=== PATIENT | female | born 1975 | race Caucasian/White ===

== ENCOUNTER 2019-09-25 23:56 | Emergency (ER) | payer OTHER ==
[~2019-09-25] VITALS: Ht 157.5 cm; Wt 102.0 kg
[2019-09-26] MEDS ORDERED: IV NORMAL SALINE 1,000ML 1,000 ML IV ONE (00:30)
--- NOTE | 2019-09-26 00:42 | PHYS DOC ---
General Adult EDM: Chief Complaint: HYPERTENSION HPI: HPI: 43-year-old female presents with hypertension. The patient felt like she was having a localized allergic reaction on her top lip yesterday when she went to bed. It has been bothering her on and off during the day today. She has taken Benadryl and it has kept down the swelling. The patient also just generally felt more off today. She decided to take her blood pressure before bed and it was in the upper 170s or higher. She became very anxious and concerned about that and called the nurse line. The nursing advised she stay home and call her primary care physician. She decided to come the hospital anyway. On arrival he r blood pressure is 207/131. Her heart rate is 120. Review of Systems: Review of Systems: Constitutional: Denies fever or chills Eyes: Denies change in visual acuity HENT: Denies nasal congestion or sore throat Respiratory: Denies cough or shortness of breath Cardiovascular: Denies chest pain or edema GI: Denies abdominal pain, nausea, vomiting, bloody stools or diarrhea : Denies dysuria Musculoskeletal: Denies back pain or joint pain Integument: Denies rash Neurologic: Denies headache, focal weakness or sensory changes Endocrine: Denies polyuria or polydipsia Lymphatic: Denies swollen glands Psychiatric: anxiety Heart Score: Risk Factors: Risk Factors: DM, Current or recent (<one month) smoker, HTN, HLP, family history of CAD, obesity. Risk Scores: Score 0 - 3: 2.5% MACE over next 6 weeks - Discharge Home Score 4 - 6: 20.3% MACE over next 6 weeks - Admit for Clinical Observation Score 7 - 10: 72.7% MACE over next 6 weeks - Early Invasive Strategies Current Medications: Current Meds: Current Medications Medications (Trade) Dose Ordered Sig/[place] Start Time Stop Time Status Last Admin Dose Admin Clonidine HCl (Catapres) 0.2 mg 1X ONCE 09/26/19 00:30 09/26/19 00:31 UNV Lorazepam (Ativan Inj) 2 mg 1X ONCE 09/26/19 00:30 09/26/19 00:31 UNV Sodium Chloride 1,000 ml @ 1,000 mls/hr 1X ONCE 09/26/19 00:30 09/26/19 01:29 UNV Physical Exam: PE: Constitutional: Well developed, morbidly obese, well nourished, no acute distress, non-toxic appearance. [] HENT: Normocephalic, atraumatic, bilateral external ears normal, oropharynx moist, no oral exudates, nose normal. [] Eyes: PERRLA, EOMI, conjunctiva normal, no discharge. [] Neck: Normal range of motion, no tenderness, supple, no stridor. [] Cardiovascular: Heart rate 126, regular rhythm, no murmur [] Lungs & Thorax: Bilateral breath sounds clear to auscultation [] Abdomen: Bowel sounds normal, soft, no tenderness, no masses, no pulsatile masses. [] Skin: Warm, dry, no erythema, no rash. [] Back: No tenderness, no CVA tenderness. [] Extremities: No tenderness, no cyanosis, no clubbing, ROM intact, no edema. [] Neurologic: Alert and oriented X 3, normal motor function, normal sensory funct ion, no focal deficits noted. [] Psychologic: Affect normal, judgement normal, mood anxious. [] EKG: EKG: [] Radiology/Procedures: Radiology/Procedures: [] Course & Med Decision Making: Course & Med Decision Making Pertinent Labs and Imaging studies reviewed. (See chart for details) The patient's labs are unremarkable except for anemia with a hemoglobin of 10.6 and a mildly low potassium. After just some Ativan for her anxiety, the patient's blood pressure improved to 157/107. Her heart rate is still 119. She tells me that she is always had a rapid heartbeat. It is sinus. We have given her a liter normal saline. Her urinalysis is significant for blood but she is on her menstrual cycle. It is negative for infection. I have stressed to the patient that she should follow-up with her primary care physician and discuss the need for blood pressure medicine. She should also have a more complete evaluation of her cardiovascular system. She is stable for discharge at this time. [] Dragon Disclaimer: Jeovany Disclaimer: This electronic medical record was generated, in whole or in part, using a voice recognition dictation system. Departure Departure: Impression: Primary Impression: Hypertension Qualified Codes: I10 - Essential (primary) hypertension Disposition: HOME/RESIDENCE PRIOR TO ADM Condition: STABLE Referrals: PCP,NO (PCP) Patient Instructions: Hypertension, Hbje-te-Irct Justification of Admission: Justification of Admission: Justification of Admission Dx: N/A TOSIN PRIETO DO Sep 26, 2019 00:42
[2019-09-26] MEDS ORDERED: cloNIDine HCL 0.1 MG TABLET PO ONE (00:45)
[2019-09-26 00:54] LABS: BASO # 0.1 x10^3/uL (0.0-0.2); BASO % 1 % (0-3); EOS # 0.1 x10^3/uL (0.0-0.7); EOS % 2 % (0-3); HEMATOCRIT 33.5 % (36.0-47.0); HEMOGLOBIN 10.6 g/dL (12.0-15.5); LYMPH # 3.2 x10^3/uL (1.0-4.8); LYMPH % 35 % (24-48); MEAN CORPUSCULAR HEMOGLOBIN 22 pg (25-35); MEAN CORPUSCULAR HGB CONC 32 g/dL (31-37); MEAN CORPUSCULAR VOLUME 69 fL (79-100); MONO # 0.6 x10^3/uL (0.0-1.1); MONO % 7 % (0-9); NEUT # 5.2 x10^3uL (1.8-7.7); NEUT % 56 % (31-73); PLATELET COUNT 287 x10^3/uL (140-400); RED BLOOD COUNT 4.88 x10^6/uL (3.50-5.40); RED CELL DISTRIBUTION WIDTH 16.4 % (11.5-14.5); WHITE BLOOD COUNT 9.2 x10^3/uL (4.0-11.0)
[2019-09-26 00:58] LABS: CALCIUM 10.1 mg/dL (8.5-10.1); CREATININE 0.8 mg/dL (0.6-1.0); GFR 78.7; POTASSIUM 3.3 mmol/L (3.5-5.1)
[2019-09-26 01:00] LABS: BARBITURATES NEG (NEG); BENZODIAZEPINES NEG (NEG); CANNABINOIDS NEG (NEG); COCAINE NEG (NEG); METHADONE NEG (NEG); OPIATES NEG (NEG); PHENCYCLIDINE NEG (NEG)
[2019-09-26 01:03] LABS: BACTERIA,URINE 0 /HPF (0-FEW); BILIRUBIN,URINE NEG (NEG); CLARITY,URINE CLEAR; COLOR,URINE STRAW; GLUCOSE,URINE NEG (NEG); NITRITE,URINE NEG (NEG); SQUAMOUS EPITHELIAL CELL,UR FEW /LPF; UROBILINOGEN,URINE 0.2 mg/dL (0.2 mg/dL); WBC,URINE 0 /HPF (0-4)
[2019-09-26 01:04] LABS: TOTAL BILIRUBIN 0.2 mg/dL (0.2-1.0); TOTAL PROTEIN 8.2 g/dL (6.4-8.2)
[2019-09-26 01:05] LABS: AMPHETAMINE/METHAMPHETAMINE NEG (NEG)
[2019-09-26 01:52] LABS: ANISOCYTOSIS MOD; MICROCYTOSIS MOD
[2019-09-26 01:53] LABS: HYPOCHROMIA MOD; PLT ESTIMATE ADEQUATE (ADEQUATE)
[2019-09-26 02:05] VITALS: BP 161/103
--- NOTE | 2019-09-26 02:43 | EKG ---
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
== END 2019-09-26 02:05 | disposition home or self-care (01) ==
LOC: ER 23:56
DX: I10 Essential (primary) hypertension (principal); K13.0 Diseases of lips; F41.9 Anxiety disorder, unspecified; E66.01 Morbid (severe) obesity due to excess calories; Z68.41 Body mass index [BMI] 40.0-44.9, adult
CPT/HCPCS: 36415; 80053; 80307; 81001; 84484; 85025; 93005; 96374; 99284; J2060; J7030

== ENCOUNTER 2020-04-13 17:05 | Emergency (ER) | payer OTHER ==
[~2020-04-13] VITALS: Ht 157.5 cm; Wt 94.4 kg
--- NOTE | 2020-04-13 17:39 | PHYS DOC ---
Past History Past Medical History: Anxiety, Diabetes, High Cholesterol, Hypertension (SHYANNE MCGREGOR MD) Past Medical History: CAD, CHF, Hypertension, Other (DES MALDONADO MD) Past Surgical History: Cholecystectomy, Hysterectomy (SHYANNE MCGREGOR MD) Alcohol Use: None (SHYANNE MCGREGOR MD) General Adult EDM: Chief Complaint: ANXIETY/PANIC ATTACK HPI: HPI: Patient is a 44-year-old female coming in for blood pressure reading of 170s over 110's at home. Patient states she checked her blood pressure because she felt "off" for the past couple of days. States she also had difficulty sleeping last night secondary to palpitations and has a mild headache. Denies any vision changes. Patient is tearful but denies any recent stressors or anxiety. She was seen here for similar symptoms in August and discharged after a negative work up, she had followed up with her primary care and was started on lisinopril which was increased to 30 mg daily about 1 month ago. Denies any fevers, nausea, vomiting, vision changes, dysuria. Patient states she has been drinking increased water and has had increased urination as a result. Says she normally has an elevated heart rate but without the sensation of her heart beating harder than normal. States her systolic blood pressure is usually in the 150s (SHYANNE MCGREGOR MD) Review of Systems: Review of Systems: All other systems within normal limits except for as noted in the HPI (SHYANNE MCGREGOR MD) Allergies: Allergies: Allergies Coded Allergies Type Severity Reaction Last Updated Verified Penicillins Allergy Intermediate Swelling 09/26/19 No (SHYANNE MCGREGOR MD) Physical Exam: PE: Constitutional: Well developed, well nourished, no acute distress, non-toxic appearance, tearful. [] HENT: Normocephalic, atraumatic, bilateral external ears normal, nose normal. [] Eyes: PERRLA, conjunctiva normal, no discharge. [] Neck: No rigidity, supple, no stridor. [] Cardiovascular: Tachycardic, regular rhythm, symmetric pulses, brisk cap refill [] Lungs & Thorax: Non labored symmetric respirations, no tachypnea or respiratory distress. Lungs clear to auscultation [] Abdomen: Soft, nondistended, nontender to palpation. Skin: Warm, dry, no erythema, no rash, no pallor. [] Extremities: No deformities, range of motion grossly intact, no lower extremity edema [] Neurologic: Alert and oriented X 3, no focal deficits noted. [] Psychologic: Affect normal, judgement normal, mood normal. [] (SHYANNE MCGREGOR MD) Current Patient Data: Vital Signs: Vital Signs Date Time Temp Pulse Resp B/P (MAP) Pulse Ox O2 Delivery O2 Flow Rate FiO2 04/13/20 17:05 98.2 108 24 188/131 (150) 99 Room Air (SHYANNE MCGREGOR MD) EKG: EKG: Sinus tachycardia, heart rate 103 bpm, left axis deviation, no ST elevation or depression, no ectopy, normal intervals [] (SHYANNE MCGREGOR MD) EKG: My interpretation of second EKG shows a sinus tachycardia 105 bpm. Does have leftward axis. No findings of acute STEMI of contralateral changes there are some lead changes which have been attributed to lead placement from prior EKG on file. Overall morphology has not changed. (DES MALDONADO MD) Radiology/Procedures: Radiology/Procedures: [] (SHYANNE MCGREGOR MD) Radiology/Procedures: [place] [address] IMAGING REPORT Signed PATIENT: ZULMA BURNHAM ACCOUNT: [id number] : 1975 LOCATION: ER AGE: 44 SEX: F EXAM STATUS: REG ER ORD. PHYSICIAN: DES MALDONADO MD REASON: cp, OMNI 350, 100ml PROCEDURE: CT ANGIOGRAPHY CHEST Exam: CT of chest with contrast INDICATION: Chest pain TECHNIQUE: Sequential axial images through the chest obtained following the administration 100 mL of Omni 350 IV contrast. Sagittal and coronal reformatted images were reconstructed from the axial data and reviewed. 3-D reformatted images were reconstructed from the axial data and reviewed. Comparisons: Chest x-ray same day FINDINGS: The visualized portions of the thyroid are unremarkable. No enlarged mediastinal lymph nodes are identified. Heart size is normal. No pericardial effusion. Thoracic aorta has a normal course and caliber. Pulmonary artery is not enlarged. No pulmonary embolus identified within the main, lobar or segmental pulmonary arteries. Airways are patent. There is mosaic attenuation lung parenchyma likely related to air trapping. No consolidation or pneumothorax. No pleural Effusion or thickening. Diffuse hepatic steatosis. No suspicious osseous lesions or acute fractures. IMPRESSION: 1. No pulmonary embolus identified within the main, lobar or segmental pulmonary arteries. 2. Diffuse hepatic steatosis. Exposure: One or more of the following in the visualized dose reduction techniques were utilized for this examination: 1. Automated exposure control 2. Adjustment of the MA and/or KV according to patient size 3. Use of iterative of reconstructive technique Electronically signed by: Festus Maynard MD (04/13/2020 10:21 PM) [facility] DICTATED AND SIGNED BY: FESTUS MAYNARD MD DATE: 04/13/202217 CC: DES MALDONADO MD; LEIDA GUILLORY APRN ~MTH0 0 (DES MALDONADO MD) Heart Score: Risk Factors: Risk Factors: DM, Current or recent (<one month) smoker, HTN, HLP, family history of CAD, obesity. Risk Scores: Score 0 - 3: 2.5% MACE over next 6 weeks - Discharge Home Score 4 - 6: 20.3% MACE over next 6 weeks - Admit for Clinical Observation Score 7 - 10: 72.7% MACE over next 6 weeks - Early Invasive Strategies (SHYANNE MCGREGOR MD) HEART Score for Chest Pain: HEART Score for Chest Pain Response (Comments) Value History Slighlty/Non-Suspicious 0 ECG Nonspecific Repolarizatio 1 Age < 45 0 Risk Factors 1 or 2 Risk Factors 1 Troponin < Normal Limit 0 Total 2 Course & Med Decision Making: Course & Med Decision Making Pertinent Labs and Imaging studies reviewed. (See chart for details) Care transitioned to Dr. Maldonado at shift change, patient pending labs [] (SHYANNE MCGREGOR MD) Course & Med Decision Making See Dr. Mcgregor chart for details. Take blood pressure meds as previous directed. Wear clonidine patch until follow-up with your primary care. Return if any concerns. Push fruit juices. Must follow-up primary care. Impression: 1. Accelerated HTN 2. Hypokalemia 3.1 3. Hx.of Anxiety 4. Pleurisy (DES MALDONADO MD) Dragon Disclaimer: Dragon Disclaimer: This electronic medical record was generated, in whole or in part, using a voice recognition dictation system. (SHYANNE MCGREGOR MD) Departure Departure: Referrals: LEIDA GUILLORY APRN (PCP) Jeovany Disclaimer This chart was dictated in whole or in part using Voice Recognition software in a busy, high-work load, and often noisy Emergency Department environment. It may contain unintended and wholly unrecognized errors or omissions. (DES MALDONADO MD) SHYANNE MCGREGOR MD Apr 13, 2020 17:39 DES MALDONADO MD Apr 13, 2020 18:03
--- NOTE | 2020-04-13 17:52 | EKG ---
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
[2020-04-13] MEDS ORDERED: LORazepam 1 MG TABLET PO ONE (18:00)
[2020-04-13 18:08] LABS: BASO % 0 % (0-3); EOS # 0.1 x10^3/uL (0.0-0.7); EOS % 1 % (0-3); HEMOGLOBIN 14.7 g/dL (12.0-15.5); LYMPH # 2.7 x10^3/uL (1.0-4.8); LYMPH % 33 % (24-48); MEAN CORPUSCULAR HEMOGLOBIN 27 pg (25-35); MEAN CORPUSCULAR HGB CONC 34 g/dL (31-37); MEAN CORPUSCULAR VOLUME 79 fL (79-100); MONO # 0.5 x10^3/uL (0.0-1.1); MONO % 6 % (0-9); NEUT # 4.8 x10^3uL (1.8-7.7); NEUT % 59 % (31-73); PLATELET COUNT 233 x10^3/uL (140-400); RED BLOOD COUNT 5.46 x10^6/uL (3.50-5.40); RED CELL DISTRIBUTION WIDTH 14.2 % (11.5-14.5); WHITE BLOOD COUNT 8.1 x10^3/uL (4.0-11.0)
[2020-04-13 18:14] LABS: AMPHETAMINE/METHAMPHETAMINE NEG (NEG); BARBITURATES NEG (NEG); BENZODIAZEPINES NEG (NEG); CANNABINOIDS NEG (NEG); COCAINE NEG (NEG); METHADONE NEG (NEG); OPIATES NEG (NEG); PHENCYCLIDINE NEG (NEG)
[2020-04-13] MEDS ORDERED: cloNIDine HCL 0.1 MG TABLET ONE (18:14)
[2020-04-13] MEDS ORDERED: cloNIDine TTS-2 1 PATCH PATCH TD ONE ×2 (18:14→18:15)
[2020-04-13] MEDS ORDERED: cloNIDine HCL 0.1 MG TABLET PO ONE ×2 (18:15→19:15)
[2020-04-13 18:24] LABS: CLARITY,URINE CLEAR; COLOR,URINE STRAW
[2020-04-13 18:25] LABS: BACTERIA,URINE 0 /HPF (0-FEW); BILIRUBIN,URINE NEG (NEG); GLUCOSE,URINE NEG (NEG); NITRITE,URINE NEG (NEG); RBC,URINE 0 /HPF (0-2); SQUAMOUS EPITHELIAL CELL,UR FEW /LPF; UROBILINOGEN,URINE 0.2 mg/dL (0.2 mg/dL); WBC,URINE OCC /HPF (0-4)
[2020-04-13 18:26] LABS: CALCIUM 10.3 mg/dL (8.5-10.1); CREATININE 0.6 mg/dL (0.6-1.0); GFR 109.1; POTASSIUM 3.1 mmol/L (3.5-5.1)
[2020-04-13 18:35] LABS: ALBUMIN 3.9 g/dL (3.4-5.0); ALBUMIN/GLOBULIN RATIO 0.9 (1.0-1.7); MAGNESIUM 1.9 mg/dL (1.8-2.4); TOTAL BILIRUBIN 0.4 mg/dL (0.2-1.0); TOTAL PROTEIN 8.3 g/dL (6.4-8.2)
[2020-04-13] MEDS ORDERED: POTASSIUM CHLORIDE 20 MEQ TABLET.ER. PO ONE (19:00)
[2020-04-13] MEDS ORDERED: METOPROLOL TARTRATE 5 MG/5 ML VIAL. IV ONE (20:30)
--- NOTE | 2020-04-13 20:34 | EKG ---
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
--- NOTE | 2020-04-13 21:00 | RAD ---
EXAM: XR CHEST 2V INDICATION: Reason: htn, dyspnea / Spl. Instructions: / History: . TECHNIQUE: PA and lateral views COMPARISON: None FINDINGS: The heart size is normal. The great vessels appear unremarkable. There is no hilar or mediastinal mass. The lungs are clear. There is no pleural effusion or pneumothorax. There are no significant osseous abnormalities. IMPRESSION: No active cardiopulmonary disease. Electronically signed by: Natali Child MD (04/13/2020 8:58 PM) [facility] [place]
[2020-04-13] MEDS ORDERED: CONTRAST GIVEN. MC PRN (21:15)
[2020-04-13] MEDS ORDERED: IOHEXOL 350 MG/ML 100 ML VIAL. IV ONE (21:30)
--- NOTE | 2020-04-13 22:23 | RAD ---
Exam: CT of chest with contrast INDICATION: Chest pain TECHNIQUE: Sequential axial images through the chest obtained following the administration 100 mL of Omni 350 IV contrast. Sagittal and coronal reformatted images were reconstructed from the axial data and reviewed. 3-D reformatted images were reconstructed from the axial data and reviewed. Comparisons: Chest x-ray same day FINDINGS: The visualized portions of the thyroid are unremarkable. No enlarged mediastinal lymph nodes are iden tified. Heart size is normal. No pericardial effusion. Thoracic aorta has a normal course and caliber. Pulmon luis artery is not enlarged. No pulmonary embolus identified within the main, lobar or segmental pulmo nary arteries. Airways are patent. There is mosaic attenuation lung parenchyma likely related to air trapping. No co nsolidation or pneumothorax. No pleural Effusion or thickening. Diffuse hepatic steatosis. No suspicious osseous lesions or acute fractures. IMPRESSION: 1. No pulmonary embolus identified within the main, lobar or segmental pulmonary arteries. 2. Diffuse hepatic steatosis. Exposure: One or more of the following in the visualized dose reduction techniques were utilized for this examination: 1. Automated exposure control 2. Adjustment of the MA and/or KV according to patient size 3. Use of iterative of reconstructive technique Electronically signed by: Festus Avalos MD (04/13/2020 10:21 PM) [facility]
[2020-04-13 22:50] VITALS: BP 122/77
== END 2020-04-13 23:00 | disposition home or self-care (01) ==
LOC: ER 17:05
DX: I10 Essential (primary) hypertension (principal); R09.1 Pleurisy; E87.6 Hypokalemia; F41.9 Anxiety disorder, unspecified; E11.9 Type 2 diabetes mellitus without complications; E78.00 Pure hypercholesterolemia, unspecified; I50.9 Heart failure, unspecified; I25.10 Atherosclerotic heart disease of native coronary artery without angina pectoris; Z88.0 Allergy status to penicillin
CPT/HCPCS: 36415; 71046; 71275; 80053; 80307; 81001; 83735; 83880; 84484; 85025; 93005; 96374; 99285; J3490; Q9967

== ENCOUNTER 2021-04-14 10:55 | Emergency (ER) | payer OTHER ==
[~2021-04-14] VITALS: Ht 157.5 cm; Wt 100.0 kg
[2021-04-14 12:00] LABS: CLARITY,URINE BLOODY; COLOR,URINE RED; RBC,URINE TNTC /HPF (0-2)
[2021-04-14 12:01] LABS: BACTERIA,URINE 0 /HPF (0-FEW); SQUAMOUS EPITHELIAL CELL,UR FEW /LPF; WBC,URINE >40 /HPF (0-4)
--- NOTE | 2021-04-14 12:23 | RAD ---
Examination: CT of the abdomen pelvis without contrast HISTORY: History of flank pain, hematuria COMPARISON: None available TECHNIQUE: Axial CT images of the abdomen is performed without contrast. Coronal and sagittal reforma ts are performed. Exposure: One or more of the following individualized dose reduction techniques were utilized for thi s examination: 1. Automated exposure control 2. Adjustment of the mA and/or kV according to patient size 3. Use of iterative reconstruction technique FINDINGS: The bibasilar lungs are clear. No evidence of free air identified in the abdomen. Diffuse decreased attenuation noted in the liver likely hepatic steatosis. The spleen, left adrenal g rossly appears unremarkable. There is a 2.1 cm density identified in the right adrenal gland measurin g 25 Hounsfield units. Cholecystectomy changes. The visualized pancreas grossly appears unremarkable. The stomach is mildly distended. The small bowel is nondilated. Appendix is normal. Moderate amount of feces and gas identified in the colon No evidence of intrahepatic system calculi or hydronephrosis. There is a small 1 cm cystic structure identified in the left kidney. Moderate thickening of the urinary bladder wall with moderate surround ing inflammatory fat stranding about the urinary bladder.. Moderate degenerative changes thoracolumba r spine. IMPRESSION: 1. Moderate thickening of the urinary bladder wall with moderate surrounding inflammatory fat strand ing about the urinary bladder likely cystitis. Correlate with lab values. Underlying neoplasm is not completely excluded. Recommend cystoscopic evaluation. 2. Hepatic steatosis. 3. Small 1 cm cystic structure left kidney could be a cyst or cystic lesion. Follow-up nonemergent u ltrasound can be considered. 4. 2.1 cm density identified in the right adrenal gland measuring 25 Hounsfield units could be a lip id poor adenoma. Follow-up nonemergent adrenal CT or MRI can be considered. Electronically signed by: Robbin Chavez MD (04/14/2021 12:21 PM) [id number]
--- NOTE | 2021-04-14 12:39 | PHYS DOC ---
Past History Past Medical History: CAD, CHF, Hypertension, Other (KEIRY ALFARO) Past Surgical History: Cholecystectomy, , Hysterectomy (KEIRY ALFARO) Smoking: Non-smoker Alcohol Use: Rarely Drug Use: None (KEIRY ALFARO) General Adult EDM: Chief Complaint: PAIN ON URINATION HPI: HPI: Patient is a 45 year old female who presents with painful urination and hematuria. Patient reports her symptoms began 2 days ago and reports associated mild flank pain. She reports that she has yolanda blood in her urine, including some clots. Patient has never been a cigarette smoker. She did attempt [id number] Azo treatment for your painful urination, but she did not experience any symptom relief. She denies fever, chills, generalized body weakness, abdominal pain. (KEIRY ALFARO) Review of Systems: Review of Systems: Constitutional: See HPI Eyes: Denies change in visual acuity, visual field deficits or discharge HENT: Denies ear pain, nasal congestion or sore throat Respiratory: Denies cough or shortness of breath Cardiovascular: Denies chest pain, palpitations or edema GI: Denies abdominal pain, nausea, vomiting, bloody stools or diarrhea : See HPI Musculoskeletal: Denies back pain or joint pain Integument: Denies rash or other skin lesion Neurologic: Denies headache, focal weakness or sensory changes (KEIRY ALFARO) Allergies: Allergies: Allergies Coded Allergies Type Severity Reaction Last Updated Verified Penicillins Allergy Intermediate Swelling 04/14/21 No (KEIRY ALFARO) Physical Exam: PE: Constitutional: Well developed, well nourished, no acute distress, non-toxic appearance. HENT: Normocephalic, atraumatic, bilateral external ears normal, nose normal. Eyes: EOMI, conjunctiva normal, no discharge. Abdomen: Bowel sounds normal, soft, no tenderness, no masses, no pulsatile masses. Skin: Warm, dry, no erythema, no rash. Back: No step-off, no tenderness, no CVA tenderness. Extremities: No cyanosis, no clubbing, ROM intact, no edema. Neurologic: Alert and oriented x4, steady and symmetrical gait, no focal deficits noted. (KEIRY ALFARO) Current Patient Data: Labs: Laboratory Tests Test 04/14/21 11:05 Urine Collection Type Unknown Urine Color Red Urine Clarity Bloody Urine pH Urine Specific Kevin Urine Protein (NEG-TRACE) Urine Glucose (UA) mg/dL (NEG) Urine Ketones (Stick) mg/dL (NEG) Urine Blood (NEG) Urine Nitrite (NEG) Urine Bilirubin (NEG) Urine Urobilinogen Dipstick mg/dL (0.2 mg/dL) Urine Leukocyte Esterase (NEG) Urine RBC Tntc /HPF (0-2) Urine WBC >40 /HPF (0-4) Urine Squamous Epithelial Cells Few /LPF Urine Bacteria 0 /HPF (0-FEW) Vital Signs: Vital Signs Date Time Temp Pulse Resp B/P (MAP) Pulse Ox O2 Delivery O2 Flow Rate FiO2 04/14/21 11:05 97.7 107 18 145/101 (116) 97 Room Air (KEIRY ALFARO) Radiology/Procedures: Radiology/Procedures: PROCEDURE: CT ABDOMEN PELVIS WO CONTRAST Examination: CT of the abdomen pelvis without contrast HISTORY: History of flank pain, hematuria COMPARISON: None available TECHNIQUE: Axial CT images of the abdomen is performed without contrast. Coronal and sagittal reformats are performed. Exposure: One or more of the following individualized dose reduction techniques were utilized for this examination: 1. Automated exposure control 2. Adjustment of the mA and/or kV according to patient size 3. Use of iterative reconstruction technique FINDINGS: The bibasilar lungs are clear. No evidence of free air identified in the abdomen. Diffuse decreased attenuation noted in the liver likely hepatic steatosis. The spleen, left adrenal grossly appears unremarkable. There is a 2.1 cm density identified in the right adrenal gland measuring 25 Hounsfield units. Cholecystectomy changes. The visualized pancreas grossly appears unremarkable. The stomach is mildly distended. The small bowel is nondilated. Appendix is norm al. Moderate amount of feces and gas identified in the colon No evidence of intrahepatic system calculi or hydronephrosis. There is a small 1 cm cystic structure identified in the left kidney. Moderate thickening of the urinary bladder wall with moderate surrounding inflammatory fat stranding about the urinary bladder.. Moderate degenerative changes thoracolumbar spine. IMPRESSION: 1. Moderate thickening of the urinary bladder wall with moderate surrounding inflammatory fat stranding about the urinary bladder likely cystitis. Correlate with lab values. Underlying neoplasm is not completely excluded. Recommend cystoscopic evaluation. 2. Hepatic steatosis. 3. Small 1 cm cystic structure left kidney could be a cyst or cystic lesion. Follow-up nonemergent ultrasound can be considered. 4. 2.1 cm density identified in the right adrenal gland measuring 25 Hounsfield units could be a lipid poor adenoma. Follow-up nonemergent adrenal CT or MRI can be considered. Electronically signed by: Robbin Chavez MD (04/14/2021 12:21 PM) [id number] DICTATED AND SIGNED BY: ROBBIN CHAVEZ MD DATE: 04/14/21 121 (KEIRY ALFARO) Heart Score: C/O Chest Pain: No (KEIRY ALFARO) Course & Med Decision Making: Course & Med Decision Making Pertinent Labs and Imaging studies reviewed. (See chart for details) Patient is a 45-year-old female with extensive past medical history presents with gross hematuria and painful urination with associated flank pain that began 2 days ago. Patient does not have a history of smoking or using other tobacco products. She also has had a full hysterectomy. Work-up today will include urinalysis and CT abdomen pelvis. Urinalysis was unable to be performed due to the amount of yolanda blood in the urine sample. CT imaging revealed thickened bladder with surrounding fat stranding as well as a cyst in the left kidney and an adrenal mass on the right. Placed a call for consultation with [facility] urology specialists. Triage nurse requested that the images be clouded over for consulting physician to review. (KEIRY ALFARO) Course & Med Decision Making I was the Attending physician on the above date of service of this patient. This patient was evaluated, examined, treated, and dispositioned from the emergency department by the mid-level practitioner. I reviewed case with midlevel practitioner and agreed need for close outpatient urology consultation for cystoscopy given concerning findings found today. No indications for any emergent or surgical intervention or need for hospital transfer especially in setting of current COVID-19 pandemic Electronically signed, Columba Rm DO (COLUMBA RM DO) Jeovany Disclaimer: Jeovany Disclaimer: This electronic medical record was generated, in whole or in part, using a voice recognition dictation system. (KEIRY ALFARO) Departure Departure: Impression: Primary Impression: Gross hematuria Additional Impression: Cystitis with hematuria Disposition: HOME / SELF CARE / HOMELESS Condition: STABLE Referrals: LEIDA GUILLORY APRN (PCP) Patient Instructions: Hematuria, Adult Additional Instructions: EMERGENCY DEPARTMENT GENERAL DISCHARGE INSTRUCTIONS Thank you for coming to [facility] (ED) today and trusting us with you care. We trust that you had a positive experience in our Emergency Department. If you wish to speak to the department management, you may call the director at [phone]. YOUR FOLLOW UP INSTRUCTIONS ARE FOLLOWS: 1. Your primary care doctor can assist you with follow up care. 2. The emergency physician has interpreted your x-rays. The specialist also reviewed them. If there is a change in the findings, you will be notified in 48 hours when at all possible. 3. A lab test or culture has been done, your results will be reviewed and you will be notified if you need a change in treatment. ADDITIONAL INSTRUCTIONS AND INFORMATION: 1. Your care today has been supervised by a physician who is specially trained in emergency care. Many problems require more than one evaluation for a complete diagnosis and treatment. We recommend that you schedule your follow up appointment as recommended to ensure complete treatment of you illness or injury. If you are unable to obtain follow up care and continue to have a problem, or if your condition worsens, we recommend that you return to the ED. 2. We are not able to safely determine your condition over the phone nor are we able to give sound medical advice over the phone. For these safety reasons, if you call for medical advice we will ask you to come to the ED for further evaluation. 3. If you have any questions regarding these discharge instructions please call the ED at [phone]. SAFETY INFORMATION: In the interest of safety, wellness, and injury prevention; we encourage you to wear your seat belt, if you smoke; quite smoking, and we encourage family to use a protective helmet for bicycling and other sporting events that present an increased risk for head injury. IF YOUR SYMPTOMS WORSEN OR NEW SYMPTOMS DEVELOP, OR YOU HAVE CONCERNS ABOUT YOUR CONDITION; OR IF YOUR CONDITION WORSENS WHILE YOU ARE WAITING FOR YOUR FOLLOW UP APPOINTMENT; EITHER CONTACT YOUR PRIMARY CARE DOCTOR, THE PHYSICIAN WHOSE NAME AND NUMBER YOU WERE GIVEN, OR RETURN TO THE ED IMMEDIATELY. Scripts Cefuroxime Axetil (CEFUROXIME) 500 Mg Tablet 1 TAB PO BID for UTI for 7 Days, #14 TAB 0 Refills Prov: KEIRY ALFARO 04/14/21 KEIRY ALFARO Apr 14, 2021 12:39 COLUMBA RM DO Apr 14, 2021 15:27
[2021-04-14 12:47] VITALS: BP 139/92
[2021-04-14] MEDS ORDERED: CEFU500T46 PO (12:52)
== END 2021-04-14 15:00 | disposition home or self-care (01) ==
LOC: ER 10:55
DX: N30.91 Cystitis, unspecified with hematuria (principal); R31.0 Gross hematuria; I25.10 Atherosclerotic heart disease of native coronary artery without angina pectoris; I11.0 Hypertensive heart disease with heart failure; I50.9 Heart failure, unspecified; Z90.49 Acquired absence of other specified parts of digestive tract; Z98.890 Other specified postprocedural states; Z90.710 Acquired absence of both cervix and uterus; Z88.0 Allergy status to penicillin
CPT/HCPCS: 74176; 81001; 87086; 99284